=== PATIENT | male | born 1975 | race Two or more races ===

== ENCOUNTER 2017-12-16 16:11 | Emergency (ER) | payer SELFPAY ==
[~2017-12-16] VITALS: Ht 182.9 cm; Wt 121.1 kg
[~2017-12-16 16:11] MED LIST: LISINOPRIL2.5 MG ORAL
--- NOTE | 2017-12-16 16:28 | Emergency Room Report ---
History of Present Illness General Chief Complaint: Syncope Source: Patient, Family Member, EMS Present Illness HPI The patient presents after having at least 3 syncopal/near-syncopal episodes today. He was walking into his house and woke up on the floor. He says he didn 't hurt himself during that time. The second time he felt dizzy and friends were able to help him down. The third time this when paramedics were there when they sat him up to get on the gurney -- he became pale and bradycardic and almost lost consciousness again. They had just performed an EKG which didn't show any acute injury. The patient's been having chills and fever for the last 3 days. He vomited yesterday and also today. He was eating marinated meat and the vomit looked red when he threw up tonight. He's been having intermittent constipation and used GoLYTELY which lead to clearing out his system. The stools been brown and not melanotic. He's been having some fullness in his stomach with a tickling pain in the L inner pelvis area ("inside"). 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 He had Bladder reconstruction at that time. He does not know if his blood counts were low. He had an indwelling myers and was discharged and told he had an UTI. He was treated with Cipro for 3 days. Allergies: Coded Allergies: No Known Allergies (Unverified , 12/16/17) Patient History Past Medical History: see triage record Social History: Denies: smoking, alcohol use, drug use Social History Narrative at home Reviewed Nursing Documentation: PMH: Agreed; PSxH: Agreed Nursing Documentation-PMH Hx Hypertension: Yes Hx Gastrointestinal Problems: Yes - Diverticulitis, removed 12in of colon 2017. Reconstructed bladder. Review of Systems All Other Systems: negative except mentioned in HPI Physical Exam Vital Signs Date Time Temp Pulse Resp B/P (MAP) Pulse Ox O2 Delivery O2 Flow Rate FiO2 12/16/17 16:02 98.5 82 18 122/78 99 Room Air 98.4 Sp02 EP Interpretation: reviewed, normal General Appearance: no apparent distress, GCS 15, other - somewhat pale Head: normocephalic Eyes: bilateral eye normal inspection, bilateral eye conjunctivae pale ENT: moist mucus membranes Neck: supple Respiratory: lungs clear, normal breath sounds Cardiovascular #1: regular rate, rhythm Cardiovascular #2: 2+ radial (R) Gastrointestinal: normal inspection, normal bowel sounds, non tender, no mass, non-distended, no guarding, no rebound, other - Low abdominal surgical scar Musculoskeletal: back normal, gait/station normal, normal range of motion Neurologic: alert, oriented x3, motor strength/tone normal, sensory intact, speech normal Psychiatric: mood/affect normal Skin: warm/dry, pallor Medical Decision Making Diagnostic Impression: Primary Impression: Syncope Qualified Codes: R55 - Syncope and collapse Additional Impressions: UTI (urinary tract infection) Qualified Codes: N30.00 - Acute cystitis without hematuria Renal insufficiency Hypokalemia ER Course The patient presents post 3 syncopal episodes 1 associated with bradycardia. Differential includes vasovagal, dehydration, anemia, sepsis, arrhythmia amongst others. Evaluation will be with EKG, chest x-ray, abdominal film and labs including lactate and troponin. He will be treated with IV hydration, Zofran and Pepcid. The patient denies any pain at this time. The fact he had recent surgery and has had difficulty with vomiting and also constipation alternating with diarrhea may necessitate further workup with a CT scan the depending on what labs show. EKG shows sinus rhythm with a right bundle-branch block. Chest x-ray is unremarkable. Abdominal series nonspecific bowel gas pattern no obstruction no masses. Labs significant for normal white count, and H&H. CMP remarkable for low potassium, elevated creatinine. The patient also has pyuria. Rocephin is given to the patient. The patient received IV hydration is feeling stronger at this time - the pallor has resolved. He still needs observation for the syncopal episode. He was admitted to Dr. Correa to telemetry. When he was confronted with financial realities he elected to sign out AGAINST MEDICAL ADVICE. I told him that he is at risk for by leaving. He states he's plans on going directly to [facility]. I contacted [facility] to attempt to transfer the patient there. They stated that they were not accepting transfers of medical patients. I told them that he was signing out AGAINST MEDICAL ADVICE and planning on going to them. They understood this. Patient refused to take potassium here and stated he would get this at [facility]. Laboratory Tests Test 12/16/17 16:35 4/29/18 17:24 White Blood Count 6.0 K/UL (4.8-10.8) Red Blood Count 4.88 M/UL (4.70-6.10) Hemoglobin 14.2 G/DL (14.2-18.0) Hematocrit 40.9 % (42.0-52.0) L Mean Corpuscular Volume 84 FL (80-99) Mean Corpuscular Hemoglobin 29.0 PG (27.0-31.0) Mean Corpuscular Hemoglobin Concent 34.6 G/DL (32.0-36.0) Red Cell Distribution Width 12.5 % (11.6-14.8) Platelet Count 146 K/UL (150-450) L Mean Platelet Volume 8.2 FL (6.5-10.1) Neutrophils (%) (Auto) 75.1 % (45.0-75.0) H Lymphocytes (%) (Auto) 14.4 % (20.0-45.0) L Monocytes (%) (Auto) 8.8 % (1.0-10.0) Eosinophils (%) (Auto) 0.2 % (0.0-3.0) Basophils (%) (Auto) 1.5 % (0.0-2.0) Prothrombin Time 10.4 SEC (9.30-11.50) Prothrombin Time INR 1.0 (0.9-1.1) PTT 29 SEC (23-33) Sodium Level 139 MMOL/L (136-145) Potassium Level 3.1 MMOL/L (3.5-5.1) L Chloride Level 101 MMOL/L (98-107) Carbon Dioxide Level 28 MMOL/L (21-32) Anion Gap 10 mmol/L (5-15) Blood Urea Nitrogen 17 mg/dL (7-18) Creatinine 2.2 MG/DL (0.55-1.30) H Estimate Glomerular Filtration Rate 32.8 mL/min (>60) Glucose Level 118 MG/DL (74-106) H Lactic Acid Level 1.40 mmol/L (0.66-2.22) Calcium Level 8.8 MG/DL (8.5-10.1) Total Bilirubin 1.0 MG/DL (0.2-1.0) Aspartate Amino Transferase (AST) 31 U/L (15-37) Alanine Aminotransferase (ALT) 42 U/L (12-78) Alkaline Phosphatase 97 U/L (46-116) Total Creatine Kinase 289 U/L (26-308) Troponin I 0.000 ng/mL (0.000-0.056) Pro-B-Type Natriuretic Peptide 535 pg/mL (0-125) H Total Protein 7.4 G/DL (6.4-8.2) Albumin 4.0 G/DL (3.4-5.0) Globulin 3.4 g/dL Albumin/Globulin Ratio 1.2 (1.0-2.7) Lipase 133 U/L (73-393) Urine Color Brown Urine Appearance Slightly cloudy Urine pH 6 (4.5-8.0) Urine Specific [place] 1.015 (1.005-1.035) Urine Protein 3+ (NEGATIVE) H Urine Glucose (UA) Negative (NEGATIVE) Urine Ketones Negative (NEGATIVE) Urine Occult Blood 2+ (NEGATIVE) H Urine Nitrite Negative (NEGATIVE) Urine Bilirubin 2+ (NEGATIVE) H Urine Ictotest Negative Urine Urobilinogen 4 MG/DL (0.0-1.0) H Urine Leukocyte Esterase 2+ (NEGATIVE) H Urine RBC 2-4 /HPF (0 - 0) H Urine WBC 15-20 /HPF (0 - 0) H Urine Squamous Epithelial Cells Few /LPF (NONE/OCC) Urine Amorphous Sediment Moderate /LPF (NONE) H Urine Bacteria Many /HPF (NONE) H EKG Diagnostic Results Rate: normal Rhythm: other ST Segments: no acute changes - RBBB Rhythm Strip Diag. Results EP Interpretation: yes Rhythm: NSR, no PVC's, no ectopy Chest X-Ray Diagnostic Results Chest X-Ray Diagnostic Results : Chest X-Ray Ordered: Yes # of Views/Limited/Complete: 1 View Indication: Other EP Interpretation: Yes Interpretation: no consolidation, no effusion, no pneumothorax Impression: No acute disease Electronically Signed by: Electronically signed by Ramone Alvarado MD Other X-Ray Diagnostic Results Other X-Ray Diagnostic Results : X-Ray ordered: Abdomen # of Views/Limited Vs Complete: 1 View Indication: Other Interpretation: nonspecific bowel gas, no sbo, other - No masses Impression: Other Electronically Signed by: Electronically signed by Ramone Alvarado MD Last Vital Signs Date Time Temp Pulse Resp B/P (MAP) Pulse Ox O2 Delivery O2 Flow Rate FiO2 12/16/17 22:20 98.4 72 15 125/72 100 Room Air 98.4 Status: improved Disposition: AGAINST MEDICAL ADVICE Condition: Serious Ramone Alvarado M.D. Dec 16, 2017 16:28
[2017-12-16 17:01] LABS: BASOPHILS % (AUTO) 1.5 % (0.0-2.0); EOSINOPHILS % (AUTO) 0.2 % (0.0-3.0); HEMATOCRIT 40.9 % (42.0-52.0); HEMOGLOBIN 14.2 G/DL (14.2-18.0); LYMPHOCYTES % (AUTO) 14.4 % (20.0-45.0); MEAN CORPUSCULAR VOLUME 84 FL (80-99); MONOCYTES % (AUTO) 8.8 % (1.0-10.0); NEUTROPHILS % (AUTO) 75.1 % (45.0-75.0); PLATELET COUNT 146 K/UL (150-450); RED BLOOD COUNT 4.88 M/UL (4.70-6.10); RED CELL DISTRIBUTION WIDTH 12.5 % (11.6-14.8)
[2017-12-16 17:02] VITALS: BP 103/54
[2017-12-16 17:07] LABS: ANION GAP 10 mmol/L (5-15); BLOOD UREA NITROGEN 17 mg/dL (7-18); CALCIUM 8.8 MG/DL (8.5-10.1); CARBON DIOXIDE 28 MMOL/L (21-32); CHLORIDE 101 MMOL/L (98-107); CREATININE 2.2 MG/DL (0.55-1.30); POTASSIUM 3.1 MMOL/L (3.5-5.1); SODIUM 139 MMOL/L (136-145)
[2017-12-16] MEDS ORDERED: LISINOPRIL10 MG ORAL (17:16)
[2017-12-16 17:17] LABS: ALANINE AMINOTRANSFERASE 42 U/L (12-78); ALBUMIN/GLOBULIN RATIO 1.2 (1.0-2.7); ALKALINE PHOSPHATASE 97 U/L (46-116); ASPARTATE AMINO TRANSFERASE 31 U/L (15-37); CREATINE KINASE 289 U/L (26-308)
[2017-12-16] MEDS ORDERED: DOCUSATE SODIU100 MG ORAL ×2 (17:17→17:19)
[2017-12-16] MEDS ORDERED: PROBIOTIC1 EAC2 PO (17:19)
[2017-12-16 17:42] LABS: APPEARANCE,URINE SLIGHTLY CLOUDY; BILIRUBIN, URINE 2+ (NEGATIVE); COLOR,URINE BROWN; GLUCOSE, URINE (UA) NEGATIVE (NEGATIVE); KETONES,URINE NEGATIVE (NEGATIVE); LEUKOCYTE ESTERASE ,URINE 2+ (NEGATIVE); NITRITE,URINE NEGATIVE (NEGATIVE); PH,URINE 6 (4.5-8.0); PROTEIN,URINE 3+ (NEGATIVE); UROBILINOGEN,URINE 4 MG/DL (0.0-1.0)
[2017-12-16] MEDS ORDERED: cefTRIAXone 1 GM in NS 55 ML IVPB ONE (18:30)
[2017-12-16 19:30] VITALS: BP 116/64
[2017-12-16] MEDS ORDERED: Hydromorphone 0.5mg/0.5ml inj IVP PRN (21:15)
[2017-12-16 21:49] VITALS: BP 125/72
[2017-12-16] MEDS ORDERED: 1/2NS w/KCl 20mEq 1000ml 1,000 ML IV SCH (22:03)
[2017-12-16 22:20] VITALS: BP 125/72
[2017-12-17] MEDS ORDERED: Docusate 100mg cap ORAL SCH (09:00)
[2017-12-17] MEDS ORDERED: Heparin 5000 units/ml inj SUBQ SCH (09:00)
--- NOTE | 2017-12-17 15:00 | Diagnostic Imaging Report ---
Indication: Syncope Technique: Supine views of the abdomen Comparison: None Findings: Bowel gas pattern is nonspecific and not overtly obstructive. Surgical material versus atherosclerotic calcification in the left lower quadrant. No acute osseous abnormality is seen. No definite evidence to suggest free intraperitoneal air however evaluation is limited without erect review. Imaged lung bases are clear. Impression: Nonspecific, not overtly obstructive bowel gas pattern. Correlate clinically. More sensitive evaluation with CT of the abdomen can be obtained as clinically indicated.
--- NOTE | 2017-12-17 15:01 | Diagnostic Imaging Report ---
Indication: Syncope Technique: XRAY Chest 1v Comparison: None Findings: Heart size and mediastinal contours are within normal limits given technique. There is no focal consolidation, pneumothorax or pleural effusion. Osseous structures demonstrate no acute abnormality. Impression: No radiographic evidence of acute cardiopulmonary disease.
== END 2017-12-16 22:20 | disposition left against medical advice (07) ==
LOC: EDBD 16:11 → EMR 16:30 → EDBEDREQ 20:45 → CANBEDREQ 22:03 → EMR 22:20
DX: R55 Syncope and collapse (principal); N30.00 Acute cystitis without hematuria; N28.9 Disorder of kidney and ureter, unspecified; E87.6 Hypokalemia; I10 Essential (primary) hypertension; R00.1 Bradycardia, unspecified; I45.10 Unspecified right bundle-branch block; Z90.49 Acquired absence of other specified parts of digestive tract
CPT/HCPCS: 36415; 71045; 74018; 80053; 81003; 82550; 83605; 83690; 83880; 84484; 85025; 85610; 85730; 86850; 86900; 86901; 87086; 93005; 96361; 96374; 96375; 99284; J0696; J2405; S0028